=== PATIENT | male | born 1960 | race Caucasian/White ===

== ENCOUNTER → 2024-11-03 | Outpatient (CLI) | payer MEDICARE, OTHER ==
[2024-11-03 11:27] VITALS: BP 135/67; PULSE 63; RESP 16; TEMP 98.9
--- NOTE | 2024-11-03 12:35 | P.PAINPG ---
PQRS Measure Charge Sheet Comment: HISTORY OF PRESENT ILLNESS: A 64 yr old male as a referral from Yaneth Fallon [facility] presents today w severe and chronic LBP> 10 yrs secondary to radiculopathy, spondylosis and facet arthropathy without myelopathy for evaluation. Pt states pain level is provoked at 10 /10 in intensity, constant, localized in the lumbar spine, predominantly axial, achy in character w occasional shooting pain towards the BL hips. Pain is provoked by any movement. Pain is alleviated by PT x 6 wks which ended in 2019, physician guided home exercises4-5 times weekly since 2019, heat, medications, repositioning and rest. He lives in [place], [place] on a fixed income and the closest PT facility is 19 mi away so he was provided w physician guided home exercise plan to perform every other day x 4-6 wks. Oswestry axial pain score at 40. PMH: OA, HTN, Hyperlipidemia, GERD, Asthma, Seasonal Allergies PSH: L Hip Replacement, Appendectomy, CTR, Cholecystectomy, EGDs SH: Daily tobacco use, Occ ETOH use, Cannabis use FH: Fa- Bone CA. Bro- CAD. Mo- HI. Sis- Esophageal CA All: See list Medications include Lyrica REVIEW OF ORGAN SYSTEMS: CONSTITUTIONAL: No fevers or chills. No recent weight loss. NEUROLOGICAL: + numbness and tingling along the distal extremities. No seizure disorders or headaches. MUSCULOSKELETAL: + pain PSYCHIATRIC: Denies current depression or suicidal thoughts. Physical Examinations : Constitutional : Cooperative , not in acute distress . Neurologic : Cranial nerve II to XII intact. No focal neurological deficits. Psychiatric : alert & oriented x 3. Matching mood & appropriate affect. Judgment & insight intact. Musculoskeletal : Cervical Spine Motor strength in the deltoid and biceps: Normal right side. Normal Left side Motor strength biceps and the wrist extensors: Normal right side . Normal left side Motor strength in the triceps muscle: Normal right side. Normal left side Deep tendon reflexes: Normal at the biceps. Normal at Brachioradialis. Normal at triceps Vertebral body tenderness to deep palpation over Cervical facet loading test: positive bilaterally Spurling test: positive bilaterally Neck distraction test: positive bilaterally Arie sign: positive bilaterally Lumbar spine Motor strength lower extremities ,thigh and legs 5/5 Right side , 5/5 Left side Deep tendon reflexes : Normal Knee Jerk. Normal Ankle Jerk Vertebral body tenderness over Andersen Test positive Lumbar facet Loading Test: positive Right / positive Left Range of motion of the lumbar spine Flexion 30 degrees, extension 10 degrees Straight Leg Raise test: Left/ Right positive at degrees Denis test: positive right / positive left. Severe tenderness over the Sacroiliac joint on the Right / Left sides Gaenslen test: positive bilaterally Seated flexion test: positive bilaterally. Sacral spine : Severe tenderness over the Sacroiliac joint: right side / left side Range of motion: Flexion of the lumbar spine <60 degrees Range of motion: Extension of the lumbar spine <20 degrees Gaenslen's Test positive Denis test: positive right side / left side Thigh Thrust Test Sacral Thrust Test Imaging: None Assessment/ Plan : Lumbar radiculopathy BILL form completed for lumbar MRI from Dr Rios and Olivier Don. Short course of Sel[place] 7.5/325mg #18 NR. Will cease use of ETOH and Cannabis. All questions answered. I have spent greater than 30 minutes on patient care today. Dr Willett was available by phone for the evaluation of this patient. The time was used to review the medical records including relevant urine studies and Prescription history (MAPs), review of the available imaging, evaluation and examination of the patient, coordination of care with the medical staff and if applicable referring physicians, as well as creation of the medical record - Pain Location Lower Back Non-Pharmacological Interventions: Heat Home Medications: Ambulatory Orders HYDROcodone/APAP 7.5-325MG [Selma 7.5-325] 1 tab PO Q4H PRN 3 Days #18 tab 11/03/24 Controlled Substance Measures - Controlled Substance Measures Is patient prescribed a controlled substance at discharge?: Yes When asked, does pt state using other controlled substances?: Yes If prescribed controlled substance>3 days was MAPS reviewed?: Prescribed <3 Days
== END ==
LOC: PNWHC3 10:40
PROVIDERS: ATTEND Specialist
DX: M47.26 Other spondylosis with radiculopathy, lumbar region (principal)
CPT/HCPCS: 99202

== ENCOUNTER → 2024-11-24 | Outpatient (CLI) | payer MEDICARE, OTHER ==
[2024-11-24 12:26] VITALS: BP 145/79; PULSE 64; RESP 16
--- NOTE | 2024-11-24 14:36 | P.PAINPG ---
PQRS Measure Charge Sheet Comment: HISTORY OF PRESENT ILLNESS: A 64 yr old male presents today w severe and chronic LBP> 10 yrs secondary to radiculopathy, spondylosis and facet arthropathy without myelopathy for evaluation. Pt states pain level is provoked at 10 /10 in intensity, constant, localized in the lumbar spine, predominantly axial, achy in character w occasional shooting pain towards the BL hips. Pain is provoked by any movement. Pain is alleviated by PT x 6 wks which ended in 2019, physician guided home exercises4-5 times weekly since 2019, heat, medications, repositioning and rest. He lives in [place], [place] on a fixed income and the closest PT facility is 19 mi away so he was provided w physician guided home exercise plan to perform every other day x 4-6 wks. Oswestry axial pain score at 40. Interventional procedures include L Hip Replacement, Medications include Lyrica, Cannabis discontinued REVIEW OF ORGAN SYSTEMS: CONSTITUTIONAL: No fevers or chills. No recent weight loss. NEUROLOGICAL: + numbness and tingling along the distal extremities. No seizure disorders or headaches. MUSCULOSKELETAL: + pain PSYCHIATRIC: Denies current depression or suicidal thoughts. Physical Examinations : Constitutional : Cooperative , not in acute distress . Neurologic : Cranial nerve II to XII intact. No focal neurological deficits. Psychiatric : alert & oriented x 3. Matching mood & appropriate affect. Judgment & insight intact. Musculoskeletal : Cervical Spine Motor strength in the deltoid and biceps: Normal right side. Normal Left side Motor strength biceps and the wrist extensors: Normal right side . Normal left side Motor strength in the triceps muscle: Normal right side. Normal left side Deep tendon reflexes: Normal at the biceps. Normal at Brachioradialis. Normal at triceps Vertebral body tenderness to deep palpation over Cervical facet loading test: positive bilaterally Spurling test: positive bilaterally Neck distraction test: positive bilaterally Arie sign: positive bilaterally Lumbar spine Motor strength lower extremities ,thigh and legs 5/5 Right side , 5/5 Left side Deep tendon reflexes : Normal Knee Jerk. Normal Ankle Jerk Vertebral body tenderness over L5 Andersen Test positive Lumbar facet Loading Test: positive Right / positive Left Range of motion of the lumbar spine Flexion 30 degrees, extension 10 degrees Straight Leg Raise test: Left/ Right positive at 30 degrees Denis test: positive right / positive left. Severe tenderness over the Sacroiliac joint on the Right / Left sides Gaenslen test: positive bilaterally Seated flexion test: positive bilaterally. Sacral spine : Severe tenderness over the Sacroiliac joint: right side / left side Range of motion: Flexion of the lumbar spine <60 degrees Range of motion: Extension of the lumbar spine <20 degrees Gaenslen's Test positive Denis test: positive right side / left side Thigh Thrust Test Sacral Thrust Test Imaging: MRI non contrast lumbar spine from 10/27/24 reviewed Assessment/ Plan : L3-S1 radiculopathy, L4-L5 severe spinal stenosis, L5-S1 moderate spinal stenosis Recommendation of JEFFREY L5-S1 #1. Risks, benefits of procedure discussed and pt verbalized understanding. Short course of Tramadol 50mg #18 NR. Will cease use of ETOH and Cannabis prior to drug screen. All questions answered. I have spent greater than 30 minutes on patient care today. Dr Willett was available by phone for the evaluation of this patient. The time was used to review the medical records including relevant urine studies and Prescription history (MAPs), review of the available imaging, evaluation and examination of the patient, coordination of care with the medical staff and if applicable referring physicians, as well as creation of the medical record PQRS Narrative: Hx Alcohol Use (MH) No Home Medications: Ambulatory Orders traMADol HCL 50 mg PO Q4H PRN 3 Days #18 tab 11/24/24 Controlled Substance Measures - Controlled Substance Measures Is patient prescribed a controlled substance at discharge?: Yes When asked, does pt state using other controlled substances?: No If prescribed controlled substance>3 days was MAPS reviewed?: Prescribed <3 Days
== END ==
LOC: PNWHC3 10:42
PROVIDERS: ATTEND Specialist
DX: M47.27 Other spondylosis with radiculopathy, lumbosacral region (principal); M48.07 Spinal stenosis, lumbosacral region
CPT/HCPCS: 99211